=== PATIENT | male | born 1985 | race Caucasian/White ===

== ENCOUNTER 2017-02-17 08:28 | Emergency (ER) | payer OTHER, BC ==
--- NOTE | 2017-02-25 16:06 | ER ---
ADMIT: 02/17/2017 RM/LOC: ER [facility] MR#: [id number] [address] [id number] MULUGETA INTERIANO [address] [place] [address] *[facility]LL Emergency Room Report SEX: M AGE: 31 : 1985 DATE: 02/17/2017 ADDENDUM: CHIEF COMPLAINT: Laceration to the right 3rd finger. HISTORY OF PRESENT ILLNESS: This is a 31-year-old, who had his finger crushed at work, suture repair was done here in the emergency room. An x-ray was done. He does have an open fracture. I am sending him home on Keflex and Bactrim. [place] for pain. Having him use ice for pain. I gave him instructions how to take care of the wound and he is to follow up with Orthopedics to have sutures removed and evaluated at that time. MARI Saenz / Julian Gonzalez MD / benny JOB #: [id number] CC: Julian Gonzalez MD, Attending Physician
== END 2017-02-17 11:12 | disposition home or self-care (01) ==
LOC: ER 08:28
PROC: 0HQFXZZ Repair Right Hand Skin, External Approach (ICD-10-PCS; principal; 2017-02-17)
DX: S62.632B Displaced fracture of distal phalanx of right middle finger, initial encounter for open fracture (principal); S61.212A Laceration without foreign body of right middle finger without damage to nail, initial encounter; F17.210 Nicotine dependence, cigarettes, uncomplicated; I10 Essential (primary) hypertension; W23.0XXA Caught, crushed, jammed, or pinched between moving objects, initial encounter; Y92.69 Other specified industrial and construction area as the place of occurrence of the external cause